=== PATIENT | male | born 1955 | race Caucasian/White ===

== ENCOUNTER 2017-06-27 11:36 | Outpatient (CLI) | payer OTHER | END 2017-06-27 11:37 | disposition home or self-care (01) | LOC: BICRAD 11:36 | PROVIDERS: ATTEND Family Medicine | DX: R07.89 Other chest pain (principal) | CPT/HCPCS: 71046 ==

== ENCOUNTER 2022-05-12 06:15 | Inpatient (IN) | payer OTHER, SELFPAY ==
[2022-05-12] MEDS ORDERED: methylPREDNISolone Sod Succ/PF 125 MG/2 ML VIAL ONE (06:21)
[2022-05-12] MEDS ORDERED: Furosemide 40 MG/4 ML VIAL ONE (06:33)
[2022-05-12] MEDS ORDERED: Ipratropium/Albuterol 3 ML NEB ONE (06:42)
[2022-05-12] MEDS ORDERED: Magnesium 2 GM/50 ML BAG (IN WATER) ONE (06:45)
[2022-05-12 06:52] LABS: Actual Bicarbonate (HCO3v) 24 mEq/L (22-28); Analyzer IN Cardio ER; Base Excess -0.6 mEq/L (-2.0 to +3.0); Chloride (VBG) 101 mmol/L (98-106); Hemoglobin (Hb) 8.8 g/dL (12.6-17.4); Potassium (VBG) 4.68 mmol/L (3.70-5.30); Sodium 134.8 mmol/L (133-146); pH (venous) 7.41 (7.32-7.43)
[2022-05-12 07:02] LABS: #Eosinphils 0.1 thou/uL (0.0-0.7); #Lymphocytes 0.5 thou/uL (1.20-3.40); #Monocytes 0.5 thou/uL (0.11-0.59); #Neutrophils 10.3 thou/uL (1.40-6.50); %Basophils 0.3 % (0.0-1.0); %Eosinophils 0.5 % (0.0-10.0); %Lymphocytes 4.6 % (21.0-51.0); %Monocytes 4.7 % (0.0-10.0); %Neutrophils 89.9 % (42.0-75.0); Hemoglobin 8.5 g/dL (14.0-18.0); Mean Corpuscular HGB CONC 33.9 g/dL (32.0-36.0); Mean Corpuscular Hemoglobin 30.1 pg (27.0-31.0); Mean Corpuscular Volume 88.6 fl (78.0-98.0); Mean Platelet Volume 7.3 fL (7.4-10.4); Platelet Count 260 10x3/uL (130-400); RBC Distribution Width 12.6 % (11.5-14.5); Red Blood Cell (RBC) Count 2.83 mill/uL (4.70-6.10); White Blood Cell (WBC) Count 11.4 10x3/uL (4.8-10.8)
[2022-05-12 07:24] LABS: INR-International Normal Ratio 1.4; Prothrombin Time 17.4 sec (12.0-14.7)
[2022-05-12 07:25] LABS: ALT (SGPT) 41 U/L (8-55); AST (SGOT) 72 U/L (5-34); Albumin 3.2 g/dL (3.4-4.8); Alkaline Phosphatase 122 U/L (40-110); Anion Gap 16 mmol/L (10-20); BUN (Urea Nitrogen) 51 mg/dL (8.4-25.7); Bilirubin, Total 0.5 mg/dL (0.2-1.2); Calc. Creatinine Clearance 0 mL/min (70-130); Calcium 8.6 mg/dL (7.8-10.44); Carbon Dioxide 23 mmol/L (23-31); Chloride 100 mmol/L (98-107); Estimated GFR 19; Globulin 3.4 g/dL (2.4-3.5); Glucose 166 mg/dL (80-115); Potassium 4.6 mmol/L (3.5-5.1); Protein, Total 6.6 g/dL (5.8-8.1); Sodium 134 mmol/L (136-145)
[2022-05-12 07:25] LABS: PTT 39.5 sec (22.9-36.1)
[2022-05-12 07:41] LABS: SARS-CoV-2 NAA Rapid Test Not Detected (NotDetected)
[2022-05-12 08:06] LABS: Bilirubin Negative (Negative); Blood, Urine 2+ (Negative); Clarity Clear (Clear); Glucose, Urine (Dipstick) Normal (Negative); Ketone, Urine Negative (Negative); Leukocyte Negative Leu/uL (Negative); Nitrite Negative (Negative); Protein, Urine (Dipstick) 30 mg/dL (Neg-Trace); Specific Gravity, Urine 1.016 (1.002-1.036); Squamous Epithelial 0-3 HPF (0-3); Urobilinogen Normal mg/dL (Less than 2)
[2022-05-12 08:08] LABS: Bacteria/HPF 1+ HPF (None Seen)
[2022-05-12] MEDS ORDERED: Ondansetron PF 4 MG/2 ML Vial IVP PRN (17:15)
[2022-05-12] MEDS ORDERED: Ondansetron ODT 4 MG TAB SL PRN (17:15)
[2022-05-12] MEDS ORDERED: Acetaminophen 325 MG TAB PO PRN (17:15)
[2022-05-12] MEDS ORDERED: Sodium Chloride 0.9% 1,000 ML IV SCH (17:15)
[2022-05-12] MEDS: Atorvastatin Calcium 40 MG TAB PO SCH (21:17)
[2022-05-12] MEDS: Cyclobenzaprine 10 MG TAB PO SCH (21:17)
[2022-05-12] MEDS: Apixaban 5 MG TAB PO SCH (21:17)
[2022-05-13] MEDS ORDERED: Furosemide 20 MG/2 ML VIAL SLOW IVP SCH (06:00)
[2022-05-13] MEDS ORDERED: Dextrose 50% Abboject 50 ML SYRINGE SLOW IVP PRN (06:33)
[2022-05-13] MEDS ORDERED: Ondansetron PF 4 MG/2 ML Vial IVP PRN (06:33)
[2022-05-13] MEDS ORDERED: Acetaminophen 325 MG TAB PO PRN (06:33)
[2022-05-13] MEDS ORDERED: HYDROcodone/Acetaminophen 5/325 mg Tablet PO PRN ×2 (06:33)
[2022-05-13] MEDS ORDERED: HumaLOG 300 UNITS/3 ML VIAL SC PRN (06:33)
[2022-05-13] MEDS ORDERED: Dextrose 5% in Water 1,000 ML IV PRN (06:33)
[2022-05-13] MEDS ORDERED: Amlodipine 10 MG TAB PO SCH (09:00)
[2022-05-13] MEDS: Furosemide 40 MG/4 ML VIAL SLOW IVP SCH ×2 (09:45→17:35)
[2022-05-13] MEDS: Aspirin 81 mg Enteric Coated Tablet PO SCH (09:46)
[2022-05-13] MEDS: Carvedilol 6.25 MG TAB PO SCH ×2 (09:46→17:32)
[2022-05-13] MEDS: Tamsulosin HCl 0.4 MG CAP PO SCH (09:47)
[2022-05-13] MEDS: Amiodarone 200 MG TAB PO SCH (09:47)
[2022-05-13] MEDS: Cyclobenzaprine 10 MG TAB PO SCH (09:47)
[2022-05-13] MEDS: Apixaban 5 MG TAB PO SCH ×2 (09:47→20:26)
[2022-05-13] MEDS: Pregabalin 75 MG CAP PO SCH (09:48)
[2022-05-13 11:36] LABS: #Lymphocytes 0.4 thou/uL (1.20-3.40); #Monocytes 0.6 thou/uL (0.11-0.59); #Neutrophils 5.3 thou/uL (1.40-6.50); %Eosinophils 0.3 % (0.0-10.0); %Lymphocytes 5.8 % (21.0-51.0); %Monocytes 10.1 % (0.0-10.0); %Neutrophils 83.8 % (42.0-75.0); Hemoglobin 8.3 g/dL (14.0-18.0); Mean Corpuscular HGB CONC 32.4 g/dL (32.0-36.0); Mean Corpuscular Hemoglobin 28.9 pg (27.0-31.0); Mean Corpuscular Volume 89.4 fl (78.0-98.0); Mean Platelet Volume 7.2 fL (7.4-10.4); Platelet Count 267 10x3/uL (130-400); RBC Distribution Width 12.7 % (11.5-14.5); Red Blood Cell (RBC) Count 2.86 mill/uL (4.70-6.10); White Blood Cell (WBC) Count 6.3 10x3/uL (4.8-10.8)
[2022-05-13 11:46] LABS: Anion Gap 21 mmol/L (10-20); BUN (Urea Nitrogen) 86 mg/dL (8.4-25.7); Calc. Creatinine Clearance 25 mL/min (70-130); Calcium 8.5 mg/dL (7.8-10.44); Carbon Dioxide 19 mmol/L (23-31); Chloride 96 mmol/L (98-107); Estimated GFR 17; Potassium 5.2 mmol/L (3.5-5.1); Sodium 131 mmol/L (136-145)
[2022-05-13 11:55] LABS: Glucose 543 mg/dL (80-115)
[2022-05-13] MEDS: HumaLOG 300 UNITS/3 ML VIAL SC PRN ×3 (12:21→20:58)
[2022-05-13 15:57] LABS: Actual Bicarbonate (HCO3a) 24.4 mEq/L (22-28); CO2 Tension 43.3 mmHg (35.0-45.0); Calcium, Ionized (arterial) 1.07 mmol/L (1.12-1.30); Hemoglobin (Hb) 9.1 g/dL (14.0-18.0); Potassium - ABG Lab 5.18 mmol/L (3.70-5.30); pH, Arterial 7.37 (7.35-7.45)
[2022-05-13 15:59] LABS: O2 Tension (PaO2), arterial 53.4 mmHg (> 80.0)
[2022-05-13 16:21] LABS: Lactic Acid 1.9 mmol/L (0.5-2.2)
[2022-05-13 16:25] LABS: Anion Gap 19 mmol/L (10-20); BUN (Urea Nitrogen) 90 mg/dL (8.4-25.7); Calc. Creatinine Clearance 24 mL/min (70-130); Calcium 8.5 mg/dL (7.8-10.44); Carbon Dioxide 21 mmol/L (23-31); Chloride 97 mmol/L (98-107); Estimated GFR 17; Potassium 5.2 mmol/L (3.5-5.1); Sodium 132 mmol/L (136-145)
[2022-05-13 16:34] LABS: Glucose 489 mg/dL (80-115)
[2022-05-13] MEDS ORDERED: Insulin Glargine 30 UNITS/0.3 ML VIAL SC SCH ×3 (16:45→21:00)
[2022-05-13] MEDS: Albumin 25% 25 GM/100 ML BOT IVPB SCH ×2 (17:33→23:40)
[2022-05-13] MEDS: Atorvastatin Calcium 40 MG TAB PO SCH (20:26)
[2022-05-14 04:15] LABS: #Eosinphils 0.2 thou/uL (0.0-0.7); #Lymphocytes 0.7 thou/uL (1.20-3.40); #Monocytes 0.5 thou/uL (0.11-0.59); #Neutrophils 4.3 thou/uL (1.40-6.50); %Basophils 0.3 % (0.0-1.0); %Eosinophils 2.8 % (0.0-10.0); %Lymphocytes 12.3 % (21.0-51.0); %Monocytes 9.5 % (0.0-10.0); %Neutrophils 75.1 % (42.0-75.0); Hemoglobin 8.2 g/dL (14.0-18.0); Mean Corpuscular HGB CONC 32.2 g/dL (32.0-36.0); Mean Corpuscular Hemoglobin 28.9 pg (27.0-31.0); Mean Corpuscular Volume 89.8 fl (78.0-98.0); Mean Platelet Volume 7.5 fL (7.4-10.4); Platelet Count 277 10x3/uL (130-400); RBC Distribution Width 12.9 % (11.5-14.5); Red Blood Cell (RBC) Count 2.83 mill/uL (4.70-6.10); White Blood Cell (WBC) Count 5.7 10x3/uL (4.8-10.8)
[2022-05-14 04:34] LABS: Anion Gap 17 mmol/L (10-20); BUN (Urea Nitrogen) 90 mg/dL (8.4-25.7); Calc. Creatinine Clearance 26 mL/min (70-130); Calcium 8.6 mg/dL (7.8-10.44); Carbon Dioxide 22 mmol/L (23-31); Chloride 100 mmol/L (98-107); Estimated GFR 18; Glucose 195 mg/dL (80-115); Magnesium 2.4 mg/dL (1.6-2.6); Potassium 4.4 mmol/L (3.5-5.1); Sodium 135 mmol/L (136-145)
[2022-05-14] MEDS: Albumin 25% 25 GM/100 ML BOT IVPB SCH ×3 (06:24→17:29)
[2022-05-14] MEDS ORDERED: Insulin Glargine 30 UNITS/0.3 ML VIAL SC SCH (09:00)
[2022-05-14] MEDS: Furosemide 100 MG in Sodium Chloride 0.9% 100 ML IVPB SCH (09:45)
[2022-05-14] MEDS: Carvedilol 6.25 MG TAB PO SCH ×2 (09:48→17:29)
[2022-05-14] MEDS: Amiodarone 200 MG TAB PO SCH (09:48)
[2022-05-14] MEDS: Tamsulosin HCl 0.4 MG CAP PO SCH (09:48)
[2022-05-14] MEDS: Aspirin 81 mg Enteric Coated Tablet PO SCH (09:48)
[2022-05-14] MEDS: Apixaban 5 MG TAB PO SCH ×2 (09:48→19:53)
[2022-05-14] MEDS ORDERED: Cyclobenzaprine 10 MG TAB PO PRN (14:04)
[2022-05-14] MEDS: HumaLOG 300 UNITS/3 ML VIAL SC PRN ×2 (18:11→19:54)
[2022-05-14] MEDS: Atorvastatin Calcium 40 MG TAB PO SCH (19:53)
[2022-05-14] MEDS: Insulin Glargine 30 UNITS/0.3 ML VIAL SC SCH (19:54)
[2022-05-15 05:02] LABS: #Eosinphils 0.4 thou/uL (0.0-0.7); #Lymphocytes 0.7 thou/uL (1.20-3.40); #Monocytes 0.5 thou/uL (0.11-0.59); #Neutrophils 4.3 thou/uL (1.40-6.50); %Basophils 0.3 % (0.0-1.0); %Eosinophils 6.1 % (0.0-10.0); %Monocytes 8.2 % (0.0-10.0); %Neutrophils 73.4 % (42.0-75.0); Hemoglobin 8.2 g/dL (14.0-18.0); Mean Corpuscular HGB CONC 32.7 g/dL (32.0-36.0); Mean Corpuscular Hemoglobin 29.2 pg (27.0-31.0); Mean Corpuscular Volume 89.2 fl (78.0-98.0); Mean Platelet Volume 7.1 fL (7.4-10.4); Platelet Count 265 10x3/uL (130-400); RBC Distribution Width 12.9 % (11.5-14.5); Red Blood Cell (RBC) Count 2.81 mill/uL (4.70-6.10); White Blood Cell (WBC) Count 5.9 10x3/uL (4.8-10.8)
[2022-05-15 05:28] LABS: ALT (SGPT) 20 U/L (8-55); AST (SGOT) 14 U/L (5-34); Albumin 3.9 g/dL (3.4-4.8); Alkaline Phosphatase 100 U/L (40-110); Anion Gap 13 mmol/L (10-20); BUN (Urea Nitrogen) 87 mg/dL (8.4-25.7); Bilirubin, Total 0.7 mg/dL (0.2-1.2); Calc. Creatinine Clearance 28 mL/min (70-130); Calcium 8.9 mg/dL (7.8-10.44); Carbon Dioxide 27 mmol/L (23-31); Chloride 103 mmol/L (98-107); Estimated GFR 20; Globulin 2.7 g/dL (2.4-3.5); Glucose 150 mg/dL (80-115); Potassium 4.1 mmol/L (3.5-5.1); Protein, Total 6.6 g/dL (5.8-8.1); Sodium 139 mmol/L (136-145)
[2022-05-15] MEDS: Carvedilol 6.25 MG TAB PO SCH ×2 (10:33→17:37)
[2022-05-15] MEDS: Tamsulosin HCl 0.4 MG CAP PO SCH (10:33)
[2022-05-15] MEDS: Pregabalin 75 MG CAP PO SCH (10:34)
[2022-05-15] MEDS: Apixaban 5 MG TAB PO SCH ×2 (10:34→21:27)
[2022-05-15] MEDS: Aspirin 81 mg Enteric Coated Tablet PO SCH (10:35)
[2022-05-15] MEDS: Amiodarone 200 MG TAB PO SCH (10:35)
[2022-05-15] MEDS: Albumin 25% 25 GM/100 ML BOT IVPB SCH ×2 (11:31→17:38)
[2022-05-15] MEDS: HumaLOG 300 UNITS/3 ML VIAL SC PRN ×3 (12:09→21:27)
[2022-05-15] MEDS ORDERED: Polyethylene Glycol 3350 17 GM Packet PO PRN (15:32)
[2022-05-15] MEDS: Senokot S 8.6-50 MG TAB PO SCH (21:27)
[2022-05-15] MEDS: Insulin Glargine 30 UNITS/0.3 ML VIAL SC SCH (21:27)
[2022-05-15] MEDS: Atorvastatin Calcium 40 MG TAB PO SCH (21:27)
[2022-05-16] MEDS: Albumin 25% 25 GM/100 ML BOT IVPB SCH ×2 (01:07→05:41)
[2022-05-16 05:09] LABS: Anion Gap 16 mmol/L (10-20); BUN (Urea Nitrogen) 84 mg/dL (8.4-25.7); Calc. Creatinine Clearance 33 mL/min (70-130); Calcium 9.2 mg/dL (7.8-10.44); Carbon Dioxide 26 mmol/L (23-31); Chloride 103 mmol/L (98-107); Estimated GFR 24; Glucose 128 mg/dL (80-115); Potassium 4.1 mmol/L (3.5-5.1); Sodium 141 mmol/L (136-145)
[2022-05-16] MEDS: Furosemide 100 MG in Sodium Chloride 0.9% 100 ML IVPB SCH (05:41)
[2022-05-16] MEDS: Amiodarone 200 MG TAB PO SCH (09:12)
[2022-05-16] MEDS: Senokot S 8.6-50 MG TAB PO SCH ×2 (09:12→22:44)
[2022-05-16] MEDS: Pregabalin 75 MG CAP PO SCH (09:12)
[2022-05-16] MEDS: Apixaban 5 MG TAB PO SCH ×2 (09:13→22:44)
[2022-05-16] MEDS: Tamsulosin HCl 0.4 MG CAP PO SCH (09:13)
[2022-05-16] MEDS: Carvedilol 6.25 MG TAB PO SCH ×2 (09:13→17:34)
[2022-05-16] MEDS: Aspirin 81 mg Enteric Coated Tablet PO SCH (09:13)
[2022-05-16 13:24] LABS: #Eosinphils 0.2 thou/uL (0.0-0.7); #Lymphocytes 0.6 thou/uL (1.20-3.40); #Monocytes 0.5 thou/uL (0.11-0.59); #Neutrophils 4.4 thou/uL (1.40-6.50); %Eosinophils 3.7 % (0.0-10.0); %Lymphocytes 9.9 % (21.0-51.0); %Monocytes 8.2 % (0.0-10.0); %Neutrophils 78.2 % (42.0-75.0); Hemoglobin 8.2 g/dL (14.0-18.0); Mean Corpuscular HGB CONC 33.7 g/dL (32.0-36.0); Mean Corpuscular Hemoglobin 30.2 pg (27.0-31.0); Mean Corpuscular Volume 89.6 fl (78.0-98.0); Mean Platelet Volume 7.7 fL (7.4-10.4); Platelet Count 213 10x3/uL (130-400); RBC Distribution Width 13.1 % (11.5-14.5); White Blood Cell (WBC) Count 5.7 10x3/uL (4.8-10.8)
[2022-05-16 13:44] LABS: Anion Gap 15 mmol/L (10-20); BUN (Urea Nitrogen) 80 mg/dL (8.4-25.7); Calc. Creatinine Clearance 33 mL/min (70-130); Carbon Dioxide 26 mmol/L (23-31); Chloride 104 mmol/L (98-107); Estimated GFR 24; Glucose 145 mg/dL (80-115); Potassium 3.9 mmol/L (3.5-5.1); Sodium 141 mmol/L (136-145)
[2022-05-16] MEDS: Insulin Glargine 30 UNITS/0.3 ML VIAL SC SCH (22:44)
[2022-05-16] MEDS: Atorvastatin Calcium 40 MG TAB PO SCH (22:44)
[2022-05-17] MEDS: HumaLOG 300 UNITS/3 ML VIAL SC PRN ×3 (01:11→20:46)
[2022-05-17 04:26] LABS: #Eosinphils 0.2 thou/uL (0.0-0.7); #Lymphocytes 0.6 thou/uL (1.20-3.40); #Monocytes 0.4 thou/uL (0.11-0.59); %Basophils 0.3 % (0.0-1.0); %Eosinophils 4.4 % (0.0-10.0); %Lymphocytes 11.2 % (21.0-51.0); %Monocytes 7.7 % (0.0-10.0); %Neutrophils 76.4 % (42.0-75.0); Hemoglobin 8.4 g/dL (14.0-18.0); Mean Corpuscular HGB CONC 33.3 g/dL (32.0-36.0); Mean Corpuscular Hemoglobin 30.2 pg (27.0-31.0); Mean Corpuscular Volume 90.7 fl (78.0-98.0); Mean Platelet Volume 7.3 fL (7.4-10.4); Platelet Count 224 10x3/uL (130-400); RBC Distribution Width 13.3 % (11.5-14.5); Red Blood Cell (RBC) Count 2.78 mill/uL (4.70-6.10); White Blood Cell (WBC) Count 5.3 10x3/uL (4.8-10.8)
[2022-05-17 04:41] LABS: Anion Gap 15 mmol/L (10-20); BUN (Urea Nitrogen) 77 mg/dL (8.4-25.7); Calc. Creatinine Clearance 34 mL/min (70-130); Calcium 9.4 mg/dL (7.8-10.44); Carbon Dioxide 29 mmol/L (23-31); Chloride 102 mmol/L (98-107); Estimated GFR 25; Glucose 201 mg/dL (80-115); Potassium 3.8 mmol/L (3.5-5.1); Sodium 142 mmol/L (136-145)
[2022-05-17] MEDS: Furosemide 100 MG in Sodium Chloride 0.9% 100 ML IVPB SCH (05:05)
[2022-05-17] MEDS: Amiodarone 200 MG TAB PO SCH (09:57)
[2022-05-17] MEDS: Carvedilol 6.25 MG TAB PO SCH ×2 (09:57→18:21)
[2022-05-17] MEDS: Apixaban 5 MG TAB PO SCH ×2 (09:57→20:46)
[2022-05-17] MEDS: Aspirin 81 mg Enteric Coated Tablet PO SCH (09:58)
[2022-05-17] MEDS: Pregabalin 75 MG CAP PO SCH (09:58)
[2022-05-17] MEDS: Tamsulosin HCl 0.4 MG CAP PO SCH (09:58)
[2022-05-17] MEDS: Senokot S 8.6-50 MG TAB PO SCH (09:59)
[2022-05-17 17:22] VITALS: BMI 33.0
[2022-05-17] MEDS: Insulin Glargine 30 UNITS/0.3 ML VIAL SC SCH (20:46)
[2022-05-17] MEDS: Atorvastatin Calcium 40 MG TAB PO SCH (20:46)
[2022-05-18 04:44] LABS: Anion Gap 14 mmol/L (10-20); BUN (Urea Nitrogen) 65 mg/dL (8.4-25.7); Calc. Creatinine Clearance 34 mL/min (70-130); Calcium 9.4 mg/dL (7.8-10.44); Carbon Dioxide 29 mmol/L (23-31); Chloride 100 mmol/L (98-107); Estimated GFR 28; Glucose 296 mg/dL (80-115); Potassium 3.7 mmol/L (3.5-5.1); Sodium 139 mmol/L (136-145)
[2022-05-18] MEDS: Furosemide 100 MG in Sodium Chloride 0.9% 100 ML IVPB SCH (05:01)
[2022-05-18] MEDS: HumaLOG 300 UNITS/3 ML VIAL SC PRN ×3 (05:59→21:15)
[2022-05-18] MEDS: Tamsulosin HCl 0.4 MG CAP PO SCH (09:02)
[2022-05-18] MEDS: Aspirin 81 mg Enteric Coated Tablet PO SCH (09:02)
[2022-05-18] MEDS: Amiodarone 200 MG TAB PO SCH (09:02)
[2022-05-18] MEDS: Apixaban 5 MG TAB PO SCH ×2 (09:02→21:15)
[2022-05-18] MEDS: Pregabalin 75 MG CAP PO SCH (09:02)
[2022-05-18] MEDS: Carvedilol 6.25 MG TAB PO SCH ×2 (09:02→17:04)
[2022-05-18] MEDS: Atorvastatin Calcium 40 MG TAB PO SCH (21:15)
[2022-05-18] MEDS: Insulin Glargine 30 UNITS/0.3 ML VIAL SC SCH (21:15)
[2022-05-19 05:09] LABS: #Eosinphils 0.3 thou/uL (0.0-0.7); #Lymphocytes 0.8 thou/uL (1.20-3.40); #Monocytes 0.6 thou/uL (0.11-0.59); #Neutrophils 3.9 thou/uL (1.40-6.50); %Basophils 0.2 % (0.0-1.0); %Eosinophils 5.3 % (0.0-10.0); %Lymphocytes 14.7 % (21.0-51.0); %Monocytes 9.9 % (0.0-10.0); %Neutrophils 69.9 % (42.0-75.0); Hemoglobin 8.7 g/dL (14.0-18.0); Mean Corpuscular HGB CONC 33.1 g/dL (32.0-36.0); Mean Corpuscular Hemoglobin 29.8 pg (27.0-31.0); Mean Corpuscular Volume 90.1 fl (78.0-98.0); Mean Platelet Volume 7.4 fL (7.4-10.4); Platelet Count 216 10x3/uL (130-400); RBC Distribution Width 13.8 % (11.5-14.5); Red Blood Cell (RBC) Count 2.93 mill/uL (4.70-6.10); White Blood Cell (WBC) Count 5.5 10x3/uL (4.8-10.8)
[2022-05-19 05:18] LABS: Anion Gap 15 mmol/L (10-20); BUN (Urea Nitrogen) 49 mg/dL (8.4-25.7); Calc. Creatinine Clearance 39 mL/min (70-130); Calcium 9.3 mg/dL (7.8-10.44); Carbon Dioxide 33 mmol/L (23-31); Chloride 99 mmol/L (98-107); Estimated GFR 32; Glucose 225 mg/dL (80-115); Potassium 3.4 mmol/L (3.5-5.1); Sodium 144 mmol/L (136-145)
[2022-05-19] MEDS: HumaLOG 300 UNITS/3 ML VIAL SC PRN ×2 (06:28→20:58)
[2022-05-19] MEDS: Furosemide 100 MG in Sodium Chloride 0.9% 100 ML IVPB SCH (06:52)
[2022-05-19] MEDS: Carvedilol 6.25 MG TAB PO SCH ×2 (09:22→17:52)
[2022-05-19] MEDS: Apixaban 5 MG TAB PO SCH ×2 (09:23→20:59)
[2022-05-19] MEDS: Amiodarone 200 MG TAB PO SCH (09:23)
[2022-05-19] MEDS: Aspirin 81 mg Enteric Coated Tablet PO SCH (09:23)
[2022-05-19] MEDS: Pregabalin 75 MG CAP PO SCH (09:23)
[2022-05-19] MEDS: Tamsulosin HCl 0.4 MG CAP PO SCH (09:26)
[2022-05-19] MEDS: Potassium Chloride 20 MEQ TAB PO SCH ×2 (12:34→15:06)
[2022-05-19] MEDS: Insulin Glargine 30 UNITS/0.3 ML VIAL SC SCH (20:57)
[2022-05-19] MEDS: Atorvastatin Calcium 40 MG TAB PO SCH (20:59)
[2022-05-20 04:35] LABS: #Eosinphils 0.3 thou/uL (0.0-0.7); #Lymphocytes 0.9 thou/uL (1.20-3.40); #Monocytes 0.5 thou/uL (0.11-0.59); #Neutrophils 3.4 thou/uL (1.40-6.50); %Basophils 0.2 % (0.0-1.0); %Eosinophils 5.3 % (0.0-10.0); %Lymphocytes 16.8 % (21.0-51.0); %Monocytes 9.8 % (0.0-10.0); %Neutrophils 67.9 % (42.0-75.0); Mean Corpuscular HGB CONC 32.6 g/dL (32.0-36.0); Mean Corpuscular Hemoglobin 29.4 pg (27.0-31.0); Mean Corpuscular Volume 90.3 fl (78.0-98.0); Mean Platelet Volume 7.5 fL (7.4-10.4); Platelet Count 184 10x3/uL (130-400); RBC Distribution Width 14.1 % (11.5-14.5); Red Blood Cell (RBC) Count 3.07 mill/uL (4.70-6.10); White Blood Cell (WBC) Count 5.1 10x3/uL (4.8-10.8)
[2022-05-20 04:59] LABS: Anion Gap 15 mmol/L (10-20); BUN (Urea Nitrogen) 46 mg/dL (8.4-25.7); Calc. Creatinine Clearance 37 mL/min (70-130); Calcium 9.2 mg/dL (7.8-10.44); Carbon Dioxide 32 mmol/L (23-31); Chloride 100 mmol/L (98-107); Estimated GFR 31; Glucose 222 mg/dL (80-115); Potassium 4.1 mmol/L (3.5-5.1); Sodium 143 mmol/L (136-145)
[2022-05-20] MEDS: HumaLOG 300 UNITS/3 ML VIAL SC PRN ×2 (05:46→11:28)
[2022-05-20] MEDS: Furosemide 100 MG in Sodium Chloride 0.9% 100 ML IVPB SCH (07:19)
[2022-05-20] MEDS: Carvedilol 6.25 MG TAB PO SCH ×2 (08:47→16:32)
[2022-05-20] MEDS: Tamsulosin HCl 0.4 MG CAP PO SCH (08:48)
[2022-05-20] MEDS: Amiodarone 200 MG TAB PO SCH (08:48)
[2022-05-20] MEDS: Aspirin 81 mg Enteric Coated Tablet PO SCH (08:48)
[2022-05-20] MEDS: Apixaban 5 MG TAB PO SCH ×2 (08:48→21:06)
[2022-05-20] MEDS: Pregabalin 75 MG CAP PO SCH (08:48)
[2022-05-20] MEDS: Atorvastatin Calcium 40 MG TAB PO SCH (21:06)
[2022-05-20] MEDS: Insulin Glargine 30 UNITS/0.3 ML VIAL SC SCH (21:06)
[2022-05-21 05:00] LABS: #Eosinphils 0.2 thou/uL (0.0-0.7); #Lymphocytes 0.9 thou/uL (1.20-3.40); #Monocytes 0.7 thou/uL (0.11-0.59); #Neutrophils 5.1 thou/uL (1.40-6.50); %Basophils 0.1 % (0.0-1.0); %Eosinophils 3.5 % (0.0-10.0); %Lymphocytes 12.8 % (21.0-51.0); %Monocytes 9.5 % (0.0-10.0); %Neutrophils 74.2 % (42.0-75.0); Hemoglobin 9.3 g/dL (14.0-18.0); Mean Corpuscular HGB CONC 33.1 g/dL (32.0-36.0); Mean Corpuscular Hemoglobin 29.5 pg (27.0-31.0); Mean Corpuscular Volume 89.3 fl (78.0-98.0); Mean Platelet Volume 7.6 fL (7.4-10.4); Platelet Count 188 10x3/uL (130-400); RBC Distribution Width 14.1 % (11.5-14.5); Red Blood Cell (RBC) Count 3.14 mill/uL (4.70-6.10); White Blood Cell (WBC) Count 6.8 10x3/uL (4.8-10.8)
[2022-05-21 05:23] LABS: Anion Gap 15 mmol/L (10-20); BUN (Urea Nitrogen) 43 mg/dL (8.4-25.7); Calc. Creatinine Clearance 36 mL/min (70-130); Calcium 9.3 mg/dL (7.8-10.44); Carbon Dioxide 31 mmol/L (23-31); Chloride 99 mmol/L (98-107); Estimated GFR 30; Glucose 189 mg/dL (80-115); Potassium 3.9 mmol/L (3.5-5.1); Sodium 141 mmol/L (136-145)
[2022-05-21] MEDS: HumaLOG 300 UNITS/3 ML VIAL SC PRN (06:07)
[2022-05-21] MEDS ORDERED: Bumetanide 1 MG TAB PO SCH (07:30)
[2022-05-21 08:29] VITALS: BP 125/60; TEMP 97.3
[2022-05-21] MEDS: Carvedilol 6.25 MG TAB PO SCH (09:30)
[2022-05-21] MEDS: Apixaban 5 MG TAB PO SCH (09:31)
[2022-05-21] MEDS: Amiodarone 200 MG TAB PO SCH (09:31)
[2022-05-21] MEDS: Aspirin 81 mg Enteric Coated Tablet PO SCH (09:31)
[2022-05-21] MEDS: Tamsulosin HCl 0.4 MG CAP PO SCH (09:32)
[2022-05-21] MEDS: Pregabalin 75 MG CAP PO SCH (09:32)
[2022-05-21] MEDS ORDERED: Furosemide 20 MG TAB PO SCH (12:00)
[2022-05-21] MEDS ORDERED: Furosemide 40 MG TAB PO SCH (12:15)
[2022-05-22] MEDS ORDERED: Furosemide 40 MG TAB PO SCH (07:30)
== END 2022-05-21 15:00 | DRG 291 ==
LOC: ERS 06:15 → ERHOLD 08:19 → 2NO 16:29
PROVIDERS: ADMIT Hospitalist; ATTEND Hospitalist
PROC: 5A09357 Assistance with Respiratory Ventilation, Less than 24 Consecutive Hours, Continuous Positive Airway Pressure (ICD-10-PCS; principal; 2022-05-13)
DX: I13.0 Hypertensive heart and chronic kidney disease with heart failure and stage 1 through stage 4 chronic kidney disease, or unspecified chronic kidney disease (principal); I50.33 Acute on chronic diastolic (congestive) heart failure; J96.21 Acute and chronic respiratory failure with hypoxia; E66.2 Morbid (severe) obesity with alveolar hypoventilation; N17.9 Acute kidney failure, unspecified; E87.1 Hypo-osmolality and hyponatremia; N18.4 Chronic kidney disease, stage 4 (severe); Z20.822 Contact with and (suspected) exposure to COVID-19; I25.10 Atherosclerotic heart disease of native coronary artery without angina pectoris; J44.9 Chronic obstructive pulmonary disease, unspecified; I48.0 Paroxysmal atrial fibrillation; E11.22 Type 2 diabetes mellitus with diabetic chronic kidney disease; I08.1 Rheumatic disorders of both mitral and tricuspid valves; E78.5 Hyperlipidemia, unspecified; R94.5 Abnormal results of liver function studies; E88.09 Other disorders of plasma-protein metabolism, not elsewhere classified; E11.65 Type 2 diabetes mellitus with hyperglycemia; D63.1 Anemia in chronic kidney disease; E87.6 Hypokalemia; Z79.01 Long term (current) use of anticoagulants; Z86.73 Personal history of transient ischemic attack (TIA), and cerebral infarction without residual deficits; Z68.31 Body mass index [BMI] 31.0-31.9, adult; Z99.89 Dependence on other enabling machines and devices; Z89.421 Acquired absence of other right toe(s); Z90.89 Acquired absence of other organs; Z82.49 Family history of ischemic heart disease and other diseases of the circulatory system; Z95.810 Presence of automatic (implantable) cardiac defibrillator
CPT/HCPCS: 36415; 36416; 51702; 71045; 80048; 80053; 81003; 81015; 82805; 83605; 83735; 83880; 84484; 85025; 85610; 85730; 87040; 87811; 93005; 93306; 93798; 94640; 94660; 96365; 96366; 96375; J1815; J1940; J1956; J2930; J3475; J3490; J7620; P9047

== ENCOUNTER 2022-05-26 18:31 | Inpatient (IN) | payer OTHER ==
[2022-05-26] MEDS ORDERED: Naloxone HCl 0.4 mg/ml Vial ONE ×2 (18:55→18:59)
[2022-05-26 19:20] LABS: #Eosinphils 0.1 thou/uL (0.0-0.7); #Lymphocytes 0.4 thou/uL (1.20-3.40); #Monocytes 0.3 thou/uL (0.11-0.59); #Neutrophils 4.9 thou/uL (1.40-6.50); %Basophils 0.4 % (0.0-1.0); %Eosinophils 1.3 % (0.0-10.0); %Lymphocytes 7.3 % (21.0-51.0); %Monocytes 5.5 % (0.0-10.0); %Neutrophils 85.5 % (42.0-75.0); Hemoglobin 7.9 g/dL (14.0-18.0); Mean Corpuscular Volume 90.7 fl (78.0-98.0); Mean Platelet Volume 8.1 fL (7.4-10.4); Platelet Count 145 10x3/uL (130-400); RBC Distribution Width 14.1 % (11.5-14.5); Red Blood Cell (RBC) Count 2.63 mill/uL (4.70-6.10); White Blood Cell (WBC) Count 5.7 10x3/uL (4.8-10.8)
[2022-05-26] MEDS ORDERED: Furosemide 40 MG/4 ML VIAL ONE (19:21)
[2022-05-26 19:29] LABS: Actual Bicarbonate (HCO3a) 30.8 mEq/L (22-28); Base Excess (BEa) 3.1 mEq/L (-2.0 to +3.0); CO2 Tension 59.6 mmHg (35.0-45.0); Calcium, Ionized (arterial) 1.14 mmol/L (1.12-1.30); Potassium - ABG Lab 3.76 mmol/L (3.70-5.30); pH, Arterial 7.33 (7.35-7.45)
[2022-05-26 19:32] LABS: O2 Tension (PaO2), arterial 53.3 mmHg (> 80.0); Puncture Site LRA
[2022-05-26 19:39] LABS: Magnesium 1.9 mg/dL (1.6-2.6)
[2022-05-26 19:41] LABS: ALT (SGPT) 38 U/L (8-55); AST (SGOT) 53 U/L (5-34); Albumin 3.8 g/dL (3.4-4.8); Alkaline Phosphatase 116 U/L (40-110); Anion Gap 14 mmol/L (10-20); BUN (Urea Nitrogen) 64 mg/dL (8.4-25.7); Bilirubin, Total 0.8 mg/dL (0.2-1.2); Calc. Creatinine Clearance 0 mL/min (70-130); Calcium 8.6 mg/dL (7.8-10.44); Carbon Dioxide 27 mmol/L (23-31); Chloride 103 mmol/L (98-107); Estimated GFR 27; Globulin 2.6 g/dL (2.4-3.5); Glucose 225 mg/dL (80-115); Phosphorus 3.3 mg/dL (2.3-4.7); Potassium 3.6 mmol/L (3.5-5.1); Protein, Total 6.4 g/dL (5.8-8.1); Sodium 140 mmol/L (136-145)
[2022-05-26] MEDS ORDERED: Rocuronium Bromide 10 MG/ML (10ML VIAL) ONE (20:03)
[2022-05-26] MEDS ORDERED: Ketamine 50 MG/ML (10ML VIAL) ONE (20:03)
[2022-05-26] MEDS ORDERED: Propofol 1,000 MG/100 ML VIAL IV ONE (20:19)
[2022-05-26] MEDS ORDERED: Fentanyl CADD 100 ML IV SCH (20:45)
[2022-05-26 20:49] LABS: Actual Bicarbonate (HCO3a) 27.6 mEq/L (22-28); Analyzer IN Cardio ER; Base Excess (BEa) 3.3 mEq/L (-2.0 to +3.0); CO2 Tension 41.1 mmHg (35.0-45.0); Carboxyhemoglobin (COHb) 0.6 gm% (0.0-3.0); Hemoglobin (Hb) 8.1 g/dL (14.0-18.0); O2 Tension (PaO2), arterial 252.9 mmHg (> 80.0); Potassium - ABG Lab 3.88 mmol/L (3.70-5.30); pH, Arterial 7.45 (7.35-7.45)
[2022-05-26 20:51] LABS: Puncture Site LBA
[2022-05-26 20:52] LABS: ALV-art Gradient 52.225 mmHg (0-20)
[2022-05-26] MEDS ORDERED: Ondansetron PF 4 MG/2 ML Vial IVP PRN (21:10)
[2022-05-26] MEDS ORDERED: Dextrose 50% Abboject 50 ML SYRINGE SLOW IVP PRN (21:14)
[2022-05-26] MEDS ORDERED: Dextrose 5% in Water 1,000 ML IV PRN (21:14)
[2022-05-26] MEDS ORDERED: HumaLOG 300 UNITS/3 ML VIAL SC PRN ×2 (21:14)
[2022-05-26] MEDS ORDERED: Ventilator Sedation Protocol 1 EACH FS SCH (21:15)
[2022-05-26] MEDS ORDERED: Ipratropium/Albuterol 3 ML NEB EZPAP PRN (21:16)
[2022-05-26 21:17] LABS: Bacteria/HPF None Seen HPF (None Seen); Bilirubin Negative (Negative); Blood, Urine 1+ (Negative); Clarity Turbid (Clear); Glucose, Urine (Dipstick) Normal (Negative); Ketone, Urine Negative (Negative); Leukocyte 500 Leu/uL (Negative); Nitrite Negative (Negative); Protein, Urine (Dipstick) 30 mg/dL (Neg-Trace); Specific Gravity, Urine 1.012 (1.002-1.036); Squamous Epithelial 0-3 HPF (0-3); Urobilinogen Normal mg/dL (Less than 2); WBC/HPF Greater than 50 HPF (0-3); Yeast-Budding 2+ HPF (None Seen); pH, Urine 5.5 (5.0-9.0)
[2022-05-26] MEDS ORDERED: DISCONTINUE PREVIOUS NARCOTIC PAIN MEDICATIONS AND BENZODIAZEPINES FS SCH (21:30)
[2022-05-26] MEDS ORDERED: Fentanyl BOLUS 250 ML IVPB PRN (21:30)
[2022-05-26] MEDS ORDERED: Lorazepam 2 MG/ML VIAL SLOW IVP PRN (21:30)
[2022-05-26] MEDS ORDERED: Propofol BOLUS 1,000 MG/100 ML VIAL IV PRN (21:30)
[2022-05-26] MEDS ORDERED: Morphine 2 MG/ML VIAL SLOW IVP PRN (21:30)
[2022-05-26] MEDS ORDERED: Aspirin 81 mg Enteric Coated Tablet PER TUBE SCH (22:15)
[2022-05-26 22:19] LABS: SARS-CoV-2 NAA Rapid Test Not Detected (NotDetected)
[2022-05-26] MEDS: Ipratropium/Albuterol 3 ML NEB EZPAP SCH (22:35)
[2022-05-26] MEDS: Ipratropium/Albuterol 3 ML NEB NEB SCH (22:35)
[2022-05-26] MEDS ORDERED: Magnesium 2 GM/50 ML(in water) 2 GM in Premix Bag 1 BAG IVPB SCH (22:45)
[2022-05-26] MEDS ORDERED: Vancomycin 1 GM in Premix Bag 1 BAG IVPB SCH (23:00)
[2022-05-26] MEDS: methylPREDNISolone Sod Succ 40 MG VIAL IVP SCH (23:15)
[2022-05-26] MEDS: Potassium Chloride 20 MEQ in Premix Bag 1 BAG IVPB SCH (23:27)
[2022-05-26] MEDS: Cefepime 1 GM in Sodium Chloride 0.9% 100 ML IVPB SCH (23:34)
[2022-05-26] MEDS ORDERED: Nitroglycerin 2% Ointment 1 INCH/1 GM Packet ONE (23:36)
[2022-05-26 23:50] LABS: Troponin I 0.021 ng/mL (< 0.028)
[2022-05-27] MEDS ORDERED: Vancomycin Dose by Levels Sliding Scale (Wt 71-99) FS SCH ×2 (00:30→04:15)
[2022-05-27] MEDS ORDERED: VANCOMYCIN 1.75 GM/500 ML BAG 1.75 GM in Premix Bag 1 BAG IVPB SCH (01:00)
[2022-05-27] MEDS: Potassium Chloride 20 MEQ in Premix Bag 1 BAG IVPB SCH (01:16)
[2022-05-27] MEDS: Ipratropium/Albuterol 3 ML NEB NEB SCH ×6 (02:52→22:03)
[2022-05-27] MEDS: Ipratropium/Albuterol 3 ML NEB EZPAP SCH ×2 (02:53→03:34)
[2022-05-27] MEDS ORDERED: Ipratropium/Albuterol 3 ML NEB EZPAP PRN (03:00)
[2022-05-27 03:59] LABS: #Lymphocytes 0.3 thou/uL (1.20-3.40); #Monocytes 0.3 thou/uL (0.11-0.59); #Neutrophils 9.6 thou/uL (1.40-6.50); %Eosinophils 0.1 % (0.0-10.0); %Lymphocytes 3.1 % (21.0-51.0); %Monocytes 2.8 % (0.0-10.0); Hemoglobin 8.2 g/dL (14.0-18.0); Mean Corpuscular HGB CONC 33.4 g/dL (32.0-36.0); Mean Corpuscular Hemoglobin 30.1 pg (27.0-31.0); Mean Corpuscular Volume 90.2 fl (78.0-98.0); Mean Platelet Volume 7.8 fL (7.4-10.4); Platelet Count 147 10x3/uL (130-400); RBC Distribution Width 14.2 % (11.5-14.5); Red Blood Cell (RBC) Count 2.73 mill/uL (4.70-6.10); White Blood Cell (WBC) Count 10.2 10x3/uL (4.8-10.8)
[2022-05-27 04:21] LABS: ALT (SGPT) 35 U/L (8-55); AST (SGOT) 39 U/L (5-34); Albumin 3.9 g/dL (3.4-4.8); Alkaline Phosphatase 120 U/L (40-110); Anion Gap 18 mmol/L (10-20); BUN (Urea Nitrogen) 61 mg/dL (8.4-25.7); Bilirubin, Total 1.2 mg/dL (0.2-1.2); Calc. Creatinine Clearance 39 mL/min (70-130); Calcium 9.1 mg/dL (7.8-10.44); Carbon Dioxide 23 mmol/L (23-31); Chloride 103 mmol/L (98-107); Estimated GFR 30; Globulin 2.8 g/dL (2.4-3.5); Glucose 148 mg/dL (80-115); Magnesium 2.2 mg/dL (1.6-2.6); Potassium 4.6 mmol/L (3.5-5.1); Protein, Total 6.7 g/dL (5.8-8.1); Sodium 139 mmol/L (136-145)
[2022-05-27] MEDS: Furosemide 40 MG/4 ML VIAL SLOW IVP SCH ×2 (05:40→14:24)
[2022-05-27] MEDS: methylPREDNISolone Sod Succ 40 MG VIAL IVP SCH ×3 (05:40→21:56)
[2022-05-27] MEDS: Nitroglycerin 2% Ointment 1 INCH/1 GM Packet TOP SCH ×4 (05:40→22:21)
[2022-05-27] MEDS ORDERED: Nitroglycerin 2% Ointment 1 INCH/1 GM Packet TOP SCH (06:00)
[2022-05-27 06:52] LABS: Actual Bicarbonate (HCO3a) 26.7 mEq/L (22-28); Base Excess (BEa) 2.9 mEq/L (-2.0 to +3.0); Calcium, Ionized (arterial) 1.11 mmol/L (1.12-1.30); Potassium - ABG Lab 4.57 mmol/L (3.70-5.30); pH, Arterial 7.46 (7.35-7.45)
[2022-05-27 06:53] LABS: Puncture Site R RAD
[2022-05-27] MEDS ORDERED: Apixaban 2.5 MG TAB PO SCH (09:00)
[2022-05-27] MEDS: Cefepime 1 GM in Sodium Chloride 0.9% 100 ML IVPB SCH ×2 (09:50→21:56)
[2022-05-27] MEDS: Aspirin 81 mg Enteric Coated Tablet PER TUBE SCH (09:51)
[2022-05-27] MEDS: Carvedilol 6.25 MG TAB PO SCH ×2 (09:51→20:20)
[2022-05-27] MEDS: Heparin 5,000 UNITS/ML VIAL SC SCH ×2 (09:51→20:20)
[2022-05-27] MEDS: Pantoprazole 40 MG VIAL IVP SCH (09:52)
[2022-05-27] MEDS: Nystatin Powder 15 GM BOT TOP SCH ×2 (09:52→20:21)
[2022-05-27] MEDS ORDERED: Dextrose 5% in Water 1,000 ML IV PRN (16:21)
[2022-05-27] MEDS ORDERED: HumaLOG 300 UNITS/3 ML VIAL SC PRN (16:21)
[2022-05-27] MEDS ORDERED: Dextrose 50% Abboject 50 ML SYRINGE SLOW IVP PRN (16:21)
[2022-05-27] MEDS: Propofol 1,000 MG/100 ML VIAL IV PRN (18:16)
[2022-05-27] MEDS: Atorvastatin Calcium 40 MG TAB PER TUBE SCH (20:20)
[2022-05-27] MEDS: HumaLOG 300 UNITS/3 ML VIAL SC PRN ×2 (20:27→23:59)
[2022-05-27] MEDS: Fentanyl CADD 100 ML IV SCH (21:57)
[2022-05-28 00:27] LABS: Vancomycin, Random 19.2 ug/mL (See Comment)
[2022-05-28] MEDS ORDERED: Vancomycin HCl 500 MG in Sodium Chloride 0.9% 100 ML IV SCH (02:00)
[2022-05-28] MEDS: Propofol 1,000 MG/100 ML VIAL IV PRN ×2 (02:14→15:58)
[2022-05-28] MEDS: Ipratropium/Albuterol 3 ML NEB NEB SCH ×6 (02:29→22:27)
[2022-05-28 03:41] LABS: #Lymphocytes 0.3 thou/uL (1.20-3.40); #Monocytes 0.2 thou/uL (0.11-0.59); #Neutrophils 5.9 thou/uL (1.40-6.50); %Basophils 0.1 % (0.0-1.0); %Eosinophils 0.3 % (0.0-10.0); %Lymphocytes 4.7 % (21.0-51.0); %Monocytes 3.2 % (0.0-10.0); %Neutrophils 91.7 % (42.0-75.0); Hemoglobin 7.9 g/dL (14.0-18.0); Mean Corpuscular HGB CONC 33.7 g/dL (32.0-36.0); Mean Corpuscular Hemoglobin 30.2 pg (27.0-31.0); Mean Corpuscular Volume 89.8 fl (78.0-98.0); Mean Platelet Volume 8.7 fL (7.4-10.4); Platelet Count 187 10x3/uL (130-400); RBC Distribution Width 14.3 % (11.5-14.5); White Blood Cell (WBC) Count 6.4 10x3/uL (4.8-10.8)
[2022-05-28 03:47] LABS: Hemoglobin A1c 9.7 % (4.0-6.0)
[2022-05-28 04:02] LABS: ALT (SGPT) 24 U/L (8-55); AST (SGOT) 17 U/L (5-34); Albumin 3.6 g/dL (3.4-4.8); Alkaline Phosphatase 102 U/L (40-110); Anion Gap 20 mmol/L (10-20); BUN (Urea Nitrogen) 78 mg/dL (8.4-25.7); Bilirubin, Total 0.7 mg/dL (0.2-1.2); Calc. Creatinine Clearance 32 mL/min (70-130); Carbon Dioxide 24 mmol/L (23-31); Chloride 100 mmol/L (98-107); Estimated GFR 24; Globulin 2.9 g/dL (2.4-3.5); Glucose 385 mg/dL (80-115); Magnesium 2.4 mg/dL (1.6-2.6); Potassium 4.7 mmol/L (3.5-5.1); Protein, Total 6.5 g/dL (5.8-8.1); Sodium 139 mmol/L (136-145)
[2022-05-28 04:05] LABS: Phosphorus 4.9 mg/dL (2.3-4.7); Troponin I 0.014 ng/mL (< 0.028)
[2022-05-28] MEDS: HumaLOG 300 UNITS/3 ML VIAL SC PRN ×5 (04:09→20:27)
[2022-05-28] MEDS ORDERED: Insulin NPH Human Isophane 100 UNIT/ML (10 ML VIAL) SC SCH (04:15)
[2022-05-28 04:20] LABS: Thyroid Stimulating Hormone 0.7017 uIU/mL (0.35-4.94)
[2022-05-28] MEDS: methylPREDNISolone Sod Succ 40 MG VIAL IVP SCH ×3 (04:34→21:32)
[2022-05-28] MEDS: Furosemide 40 MG/4 ML VIAL SLOW IVP SCH (04:34)
[2022-05-28] MEDS: Nitroglycerin 2% Ointment 1 INCH/1 GM Packet TOP SCH ×3 (04:35→21:32)
[2022-05-28 06:26] LABS: Ferritin 2399.27 ng/mL (22-322)
[2022-05-28] MEDS ORDERED: Insulin Glargine 30 UNITS/0.3 ML VIAL SC SCH (06:30)
[2022-05-28 07:20] LABS: Actual Bicarbonate (HCO3a) 27.4 mEq/L (22-28); Base Excess (BEa) 4.3 mEq/L (-2.0 to +3.0); CO2 Tension 34.5 mmHg (35.0-45.0); Calcium, Ionized (arterial) 1.12 mmol/L (1.12-1.30); Carboxyhemoglobin (COHb) 0.4 gm% (0.0-3.0); Hemoglobin (Hb) 8.6 g/dL (14.0-18.0); Potassium - ABG Lab 4.22 mmol/L (3.70-5.30); pH, Arterial 7.52 (7.35-7.45)
[2022-05-28] MEDS: Aspirin 81 mg Enteric Coated Tablet PER TUBE SCH (09:00)
[2022-05-28] MEDS: Heparin 5,000 UNITS/ML VIAL SC SCH ×2 (09:50→20:31)
[2022-05-28] MEDS: Pantoprazole 40 MG VIAL IVP SCH (09:51)
[2022-05-28] MEDS: Carvedilol 6.25 MG TAB PO SCH ×2 (09:51→20:28)
[2022-05-28] MEDS: Nystatin Powder 15 GM BOT TOP SCH ×2 (09:52→20:28)
[2022-05-28] MEDS: Cefepime 1 GM in Sodium Chloride 0.9% 100 ML IVPB SCH ×2 (10:36→21:46)
[2022-05-28] MEDS ORDERED: Aspirin Chewable 81 MG TAB PER TUBE SCH (11:15)
[2022-05-28 16:09] LABS: O2 Tension (PaO2), arterial 59.3 mmHg (> 80.0)
[2022-05-28] MEDS ORDERED: Fentanyl CADD 100 ML ONE (16:16)
[2022-05-28] MEDS: Fentanyl CADD 100 ML IV SCH (17:17)
[2022-05-28] MEDS: Atorvastatin Calcium 40 MG TAB PER TUBE SCH (20:28)
[2022-05-29] MEDS: HumaLOG 300 UNITS/3 ML VIAL SC PRN ×6 (00:10→20:43)
[2022-05-29] MEDS: Ipratropium/Albuterol 3 ML NEB NEB SCH ×6 (02:43→22:27)
[2022-05-29 03:53] LABS: Vancomycin, Random 14.9 ug/mL (See Comment)
[2022-05-29] MEDS: Propofol 1,000 MG/100 ML VIAL IV PRN (04:03)
[2022-05-29 04:21] LABS: #Lymphocytes 0.3 thou/uL (1.20-3.40); #Monocytes 0.7 thou/uL (0.11-0.59); #Neutrophils 11.8 thou/uL (1.40-6.50); %Eosinophils 0.1 % (0.0-10.0); %Lymphocytes 2.4 % (21.0-51.0); %Monocytes 5.8 % (0.0-10.0); %Neutrophils 91.7 % (42.0-75.0); Hemoglobin 8.2 g/dL (14.0-18.0); Mean Corpuscular HGB CONC 32.5 g/dL (32.0-36.0); Mean Corpuscular Hemoglobin 29.6 pg (27.0-31.0); Mean Corpuscular Volume 91.1 fl (78.0-98.0); Mean Platelet Volume 8.3 fL (7.4-10.4); Platelet Count 211 10x3/uL (130-400); RBC Distribution Width 14.7 % (11.5-14.5); Red Blood Cell (RBC) Count 2.78 mill/uL (4.70-6.10); White Blood Cell (WBC) Count 12.9 10x3/uL (4.8-10.8)
[2022-05-29 04:38] LABS: ALT (SGPT) 17 U/L (8-55); AST (SGOT) 9 U/L (5-34); Albumin 3.5 g/dL (3.4-4.8); Alkaline Phosphatase 97 U/L (40-110); Anion Gap 16 mmol/L (10-20); BUN (Urea Nitrogen) 73 mg/dL (8.4-25.7); Bilirubin, Total 0.6 mg/dL (0.2-1.2); Calc. Creatinine Clearance 37 mL/min (70-130); Calcium 9.1 mg/dL (7.8-10.44); Carbon Dioxide 26 mmol/L (23-31); Chloride 105 mmol/L (98-107); Estimated GFR 28; Globulin 2.7 g/dL (2.4-3.5); Glucose 273 mg/dL (80-115); Magnesium 2.4 mg/dL (1.6-2.6); Potassium 4.1 mmol/L (3.5-5.1); Protein, Total 6.2 g/dL (5.8-8.1); Sodium 143 mmol/L (136-145)
[2022-05-29] MEDS ORDERED: Vancomycin HCl 750 MG in Sodium Chloride 0.9% 250 ML 250 ML IVPB SCH (05:00)
[2022-05-29] MEDS: methylPREDNISolone Sod Succ 40 MG VIAL IVP SCH ×3 (05:10→21:01)
[2022-05-29] MEDS: Nitroglycerin 2% Ointment 1 INCH/1 GM Packet TOP SCH ×3 (05:10→21:10)
[2022-05-29 07:59] LABS: Actual Bicarbonate (HCO3a) 28.5 mEq/L (22-28); Base Excess (BEa) 4.7 mEq/L (-2.0 to +3.0); Calcium, Ionized (arterial) 1.15 mmol/L (1.12-1.30); Carboxyhemoglobin (COHb) 0.1 gm% (0.0-3.0); Hemoglobin (Hb) 9.1 g/dL (14.0-18.0); O2 Tension (PaO2), arterial 72.9 mmHg (> 80.0); pH, Arterial 7.48 (7.35-7.45)
[2022-05-29] MEDS ORDERED: Insulin Glargine 30 UNITS/0.3 ML VIAL SC SCH ×3 (09:00→10:30)
[2022-05-29] MEDS: Carvedilol 6.25 MG TAB PO SCH ×2 (09:55→21:00)
[2022-05-29] MEDS: Heparin 5,000 UNITS/ML VIAL SC SCH ×2 (09:56→21:04)
[2022-05-29] MEDS: Aspirin Chewable 81 MG TAB PER TUBE SCH (09:56)
[2022-05-29] MEDS: Pantoprazole 40 MG VIAL IVP SCH (09:57)
[2022-05-29] MEDS: Nystatin Powder 15 GM BOT TOP SCH ×2 (09:57→21:02)
[2022-05-29] MEDS: Cefepime 1 GM in Sodium Chloride 0.9% 100 ML IVPB SCH ×2 (10:04→22:20)
[2022-05-29] MEDS ORDERED: DC Sedation Protocol FS SCH (11:14)
[2022-05-29] MEDS: Atorvastatin Calcium 40 MG TAB PER TUBE SCH (21:00)
[2022-05-30] MEDS: HumaLOG 300 UNITS/3 ML VIAL SC PRN ×4 (00:01→12:12)
[2022-05-30] MEDS: Ipratropium/Albuterol 3 ML NEB NEB SCH ×5 (02:57→23:41)
[2022-05-30 04:51] LABS: #Lymphocytes 0.3 thou/uL (1.20-3.40); #Monocytes 0.4 thou/uL (0.11-0.59); #Neutrophils 7.7 thou/uL (1.40-6.50); %Basophils 0.3 % (0.0-1.0); %Eosinophils 0.1 % (0.0-10.0); %Lymphocytes 3.1 % (21.0-51.0); %Monocytes 4.1 % (0.0-10.0); %Neutrophils 92.4 % (42.0-75.0); Hemoglobin 8.7 g/dL (14.0-18.0); Mean Corpuscular HGB CONC 33.3 g/dL (32.0-36.0); Mean Corpuscular Hemoglobin 30.5 pg (27.0-31.0); Mean Corpuscular Volume 91.7 fl (78.0-98.0); Mean Platelet Volume 8.3 fL (7.4-10.4); Platelet Count 194 10x3/uL (130-400); RBC Distribution Width 14.3 % (11.5-14.5); Red Blood Cell (RBC) Count 2.85 mill/uL (4.70-6.10); White Blood Cell (WBC) Count 8.4 10x3/uL (4.8-10.8)
[2022-05-30 05:11] LABS: Anion Gap 14 mmol/L (10-20); BUN (Urea Nitrogen) 62 mg/dL (8.4-25.7); Calc. Creatinine Clearance 44 mL/min (70-130); Calcium 9.2 mg/dL (7.8-10.44); Carbon Dioxide 29 mmol/L (23-31); Chloride 108 mmol/L (98-107); Estimated GFR 36; Glucose 232 mg/dL (80-115); Magnesium 2.6 mg/dL (1.6-2.6); Potassium 4.3 mmol/L (3.5-5.1); Sodium 147 mmol/L (136-145)
[2022-05-30] MEDS: Nitroglycerin 2% Ointment 1 INCH/1 GM Packet TOP SCH ×3 (06:00→22:37)
[2022-05-30] MEDS: methylPREDNISolone Sod Succ 40 MG VIAL IVP SCH (06:02)
[2022-05-30] MEDS ORDERED: FLU VACC QS2022-23(65YR UP)/PF 240 MCG/0.7 ML SYRINGE IM ONE (09:00)
[2022-05-30] MEDS: Nystatin Powder 15 GM BOT TOP SCH ×2 (09:15→22:37)
[2022-05-30] MEDS: Pantoprazole 40 MG VIAL IVP SCH (09:59)
[2022-05-30] MEDS ORDERED: Cefdinir 300 MG CAP PO SCH (10:30)
[2022-05-30] MEDS: Heparin 5,000 UNITS/ML VIAL SC SCH ×2 (10:36→22:37)
[2022-05-30] MEDS: Carvedilol 6.25 MG TAB PO SCH ×2 (10:36→22:36)
[2022-05-30] MEDS: Aspirin Chewable 81 MG TAB PER TUBE SCH (10:37)
[2022-05-30] MEDS: Insulin Glargine 30 UNITS/0.3 ML VIAL SC SCH (11:18)
[2022-05-30] MEDS: Atorvastatin Calcium 40 MG TAB PER TUBE SCH (22:36)
[2022-05-30] MEDS: Tamsulosin HCl 0.4 MG CAP PO SCH (22:37)
[2022-05-31 06:41] LABS: #Eosinphils 0.1 thou/uL (0.0-0.7); #Lymphocytes 0.6 thou/uL (1.20-3.40); #Monocytes 0.8 thou/uL (0.11-0.59); #Neutrophils 5.8 thou/uL (1.40-6.50); %Eosinophils 0.8 % (0.0-10.0); %Lymphocytes 8.6 % (21.0-51.0); %Monocytes 10.4 % (0.0-10.0); %Neutrophils 80.2 % (42.0-75.0); Hemoglobin 8.8 g/dL (14.0-18.0); Mean Corpuscular HGB CONC 33.3 g/dL (32.0-36.0); Mean Corpuscular Hemoglobin 30.8 pg (27.0-31.0); Mean Corpuscular Volume 92.3 fl (78.0-98.0); Platelet Count 173 10x3/uL (130-400); RBC Distribution Width 14.2 % (11.5-14.5); Red Blood Cell (RBC) Count 2.86 mill/uL (4.70-6.10); White Blood Cell (WBC) Count 7.2 10x3/uL (4.8-10.8)
[2022-05-31] MEDS: Nitroglycerin 2% Ointment 1 INCH/1 GM Packet TOP SCH ×3 (06:43→22:41)
[2022-05-31 06:58] LABS: Anion Gap 12 mmol/L (10-20); BUN (Urea Nitrogen) 46 mg/dL (8.4-25.7); Calc. Creatinine Clearance 56 mL/min (70-130); Calcium 8.5 mg/dL (7.8-10.44); Carbon Dioxide 27 mmol/L (23-31); Chloride 109 mmol/L (98-107); Estimated GFR 48; Glucose 153 mg/dL (80-115); Magnesium 2.4 mg/dL (1.6-2.6); Potassium 3.8 mmol/L (3.5-5.1); Sodium 144 mmol/L (136-145)
[2022-05-31] MEDS: Ipratropium/Albuterol 3 ML NEB NEB SCH ×4 (06:59→23:15)
[2022-05-31] MEDS: Aspirin Chewable 81 MG TAB PER TUBE SCH (09:49)
[2022-05-31] MEDS: Carvedilol 6.25 MG TAB PO SCH ×2 (09:49→20:47)
[2022-05-31] MEDS: Cefdinir 300 MG CAP PO SCH (09:49)
[2022-05-31] MEDS: Amiodarone 200 MG TAB PO SCH (09:49)
[2022-05-31] MEDS: Heparin 5,000 UNITS/ML VIAL SC SCH ×2 (09:50→20:47)
[2022-05-31] MEDS: Insulin Glargine 30 UNITS/0.3 ML VIAL SC SCH (09:50)
[2022-05-31] MEDS: Nystatin Powder 15 GM BOT TOP SCH ×2 (09:51→20:48)
[2022-05-31 14:21] VITALS: BMI 29.5
[2022-05-31 15:11] LABS: O2 Tension (PaO2), arterial 48.1 mmHg (> 80.0)
[2022-05-31] MEDS: HumaLOG 300 UNITS/3 ML VIAL SC PRN (17:27)
[2022-05-31] MEDS: Tamsulosin HCl 0.4 MG CAP PO SCH (20:47)
[2022-05-31] MEDS: Atorvastatin Calcium 40 MG TAB PER TUBE SCH (20:47)
[2022-06-01] MEDS: HumaLOG 300 UNITS/3 ML VIAL SC PRN ×4 (00:55→22:47)
[2022-06-01] MEDS: Nitroglycerin 2% Ointment 1 INCH/1 GM Packet TOP SCH ×3 (06:13→22:48)
[2022-06-01] MEDS: Acetaminophen 325 MG TAB PO PRN (06:17)
[2022-06-01 07:47] LABS: #Basophils 0.1 thou/uL (0.0-0.2); #Eosinphils 0.2 thou/uL (0.0-0.7); #Lymphocytes 0.5 thou/uL (1.20-3.40); #Monocytes 0.5 thou/uL (0.11-0.59); #Neutrophils 4.1 thou/uL (1.40-6.50); %Basophils 1.7 % (0.0-1.0); %Eosinophils 4.4 % (0.0-10.0); %Monocytes 8.7 % (0.0-10.0); %Neutrophils 76.1 % (42.0-75.0); Hemoglobin 8.8 g/dL (14.0-18.0); Mean Corpuscular HGB CONC 32.8 g/dL (32.0-36.0); Mean Corpuscular Hemoglobin 29.9 pg (27.0-31.0); Mean Corpuscular Volume 91.1 fl (78.0-98.0); Mean Platelet Volume 7.4 fL (7.4-10.4); Platelet Count 181 10x3/uL (130-400); RBC Distribution Width 13.9 % (11.5-14.5); Red Blood Cell (RBC) Count 2.95 mill/uL (4.70-6.10); White Blood Cell (WBC) Count 5.4 10x3/uL (4.8-10.8)
[2022-06-01] MEDS: Ipratropium/Albuterol 3 ML NEB NEB SCH ×3 (07:59→18:47)
[2022-06-01] MEDS: Aspirin Chewable 81 MG TAB PER TUBE SCH (08:05)
[2022-06-01] MEDS: Heparin 5,000 UNITS/ML VIAL SC SCH ×2 (08:05→22:47)
[2022-06-01] MEDS: Insulin Glargine 30 UNITS/0.3 ML VIAL SC SCH (08:05)
[2022-06-01] MEDS: Cefdinir 300 MG CAP PO SCH (08:05)
[2022-06-01] MEDS: Amiodarone 200 MG TAB PO SCH (08:06)
[2022-06-01] MEDS: Carvedilol 6.25 MG TAB PO SCH ×2 (08:06→22:47)
[2022-06-01] MEDS: Nystatin Powder 15 GM BOT TOP SCH ×2 (08:06→22:48)
[2022-06-01 08:10] LABS: Anion Gap 10 mmol/L (10-20); BUN (Urea Nitrogen) 34 mg/dL (8.4-25.7); Calc. Creatinine Clearance 63 mL/min (70-130); Calcium 8.6 mg/dL (7.8-10.44); Carbon Dioxide 30 mmol/L (23-31); Chloride 107 mmol/L (98-107); Estimated GFR 55; Glucose 197 mg/dL (80-115); Magnesium 2.1 mg/dL (1.6-2.6); Potassium 3.7 mmol/L (3.5-5.1); Sodium 143 mmol/L (136-145)
[2022-06-01] MEDS: Tamsulosin HCl 0.4 MG CAP PO SCH (22:47)
[2022-06-01] MEDS: Atorvastatin Calcium 40 MG TAB PER TUBE SCH (22:48)
[2022-06-01] MEDS ORDERED: Melatonin 3 MG TAB PO PRN (22:52)
[2022-06-02] MEDS: Ipratropium/Albuterol 3 ML NEB NEB SCH ×4 (00:43→18:54)
[2022-06-02] MEDS: Acetaminophen 325 MG TAB PO PRN (00:55)
[2022-06-02] MEDS: Nitroglycerin 2% Ointment 1 INCH/1 GM Packet TOP SCH ×2 (05:35→14:59)
[2022-06-02 08:23] LABS: #Eosinphils 0.4 thou/uL (0.0-0.7); #Lymphocytes 0.7 thou/uL (1.20-3.40); #Monocytes 0.6 thou/uL (0.11-0.59); #Neutrophils 4.7 thou/uL (1.40-6.50); %Basophils 0.4 % (0.0-1.0); %Eosinophils 6.8 % (0.0-10.0); %Lymphocytes 11.4 % (21.0-51.0); %Monocytes 8.6 % (0.0-10.0); %Neutrophils 72.8 % (42.0-75.0); Hemoglobin 9.2 g/dL (14.0-18.0); Mean Corpuscular HGB CONC 32.8 g/dL (32.0-36.0); Mean Corpuscular Hemoglobin 29.7 pg (27.0-31.0); Mean Corpuscular Volume 90.5 fl (78.0-98.0); Mean Platelet Volume 7.5 fL (7.4-10.4); Platelet Count 187 10x3/uL (130-400); RBC Distribution Width 13.8 % (11.5-14.5); White Blood Cell (WBC) Count 6.5 10x3/uL (4.8-10.8)
[2022-06-02 08:40] LABS: Anion Gap 13 mmol/L (10-20); BUN (Urea Nitrogen) 29 mg/dL (8.4-25.7); Calc. Creatinine Clearance 64 mL/min (70-130); Calcium 8.4 mg/dL (7.8-10.44); Carbon Dioxide 25 mmol/L (23-31); Chloride 105 mmol/L (98-107); Estimated GFR 57; Glucose 133 mg/dL (80-115); Magnesium 1.9 mg/dL (1.6-2.6); Potassium 3.9 mmol/L (3.5-5.1); Sodium 139 mmol/L (136-145)
[2022-06-02] MEDS: Cefdinir 300 MG CAP PO SCH (09:06)
[2022-06-02] MEDS: Aspirin Chewable 81 MG TAB PER TUBE SCH (09:06)
[2022-06-02] MEDS: Amiodarone 200 MG TAB PO SCH (09:07)
[2022-06-02] MEDS: Carvedilol 6.25 MG TAB PO SCH (09:07)
[2022-06-02] MEDS: Insulin Glargine 30 UNITS/0.3 ML VIAL SC SCH (09:11)
[2022-06-02] MEDS: Heparin 5,000 UNITS/ML VIAL SC SCH (09:11)
[2022-06-02] MEDS: Nystatin Powder 15 GM BOT TOP SCH (09:12)
[2022-06-02] MEDS: HumaLOG 300 UNITS/3 ML VIAL SC PRN (12:44)
[2022-06-02 17:25] VITALS: BP 122/79; TEMP 97.8
== END 2022-06-02 21:20 | DRG 64 ==
LOC: ERS 18:31 → CCU 20:32 → T4-A 05-30 12:58
PROVIDERS: ADMIT Internal Medicine; ATTEND Internal Medicine
PROC: 5A1945Z Respiratory Ventilation, 24-96 Consecutive Hours (ICD-10-PCS; principal; 2022-05-26)
PROC: 0BH17EZ Insertion of Endotracheal Airway into Trachea, Via Natural or Artificial Opening (ICD-10-PCS; 2022-05-26)
PROC: 0D9670Z Drainage of Stomach with Drainage Device, Via Natural or Artificial Opening (ICD-10-PCS; 2022-05-26)
DX: I63.9 Cerebral infarction, unspecified (principal); G93.41 Metabolic encephalopathy; I50.33 Acute on chronic diastolic (congestive) heart failure; J18.9 Pneumonia, unspecified organism; J96.21 Acute and chronic respiratory failure with hypoxia; J96.22 Acute and chronic respiratory failure with hypercapnia; J44.1 Chronic obstructive pulmonary disease with (acute) exacerbation; N17.9 Acute kidney failure, unspecified; J44.0 Chronic obstructive pulmonary disease with (acute) lower respiratory infection; E27.40 Unspecified adrenocortical insufficiency; I13.0 Hypertensive heart and chronic kidney disease with heart failure and stage 1 through stage 4 chronic kidney disease, or unspecified chronic kidney disease; Z20.822 Contact with and (suspected) exposure to COVID-19; R29.702 NIHSS score 2; N18.30 Chronic kidney disease, stage 3 unspecified; D63.1 Anemia in chronic kidney disease; E11.649 Type 2 diabetes mellitus with hypoglycemia without coma; E11.22 Type 2 diabetes mellitus with diabetic chronic kidney disease; R79.89 Other specified abnormal findings of blood chemistry; R13.12 Dysphagia, oropharyngeal phase; I48.0 Paroxysmal atrial fibrillation; G47.33 Obstructive sleep apnea (adult) (pediatric); E66.9 Obesity, unspecified; R94.31 Abnormal electrocardiogram [ECG] [EKG]; E78.5 Hyperlipidemia, unspecified; E11.51 Type 2 diabetes mellitus with diabetic peripheral angiopathy without gangrene; E11.65 Type 2 diabetes mellitus with hyperglycemia; Z68.29 Body mass index [BMI] 29.0-29.9, adult; Z78.1 Physical restraint status; Z79.01 Long term (current) use of anticoagulants; Z79.899 Other long term (current) drug therapy; Z79.82 Long term (current) use of aspirin; Z79.4 Long term (current) use of insulin; Z79.51 Long term (current) use of inhaled steroids; Z89.411 Acquired absence of right great toe; Z89.421 Acquired absence of other right toe(s); Z95.810 Presence of automatic (implantable) cardiac defibrillator; Z80.9 Family history of malignant neoplasm, unspecified; Z83.3 Family history of diabetes mellitus; Z82.49 Family history of ischemic heart disease and other diseases of the circulatory system; Z87.891 Personal history of nicotine dependence; Z90.89 Acquired absence of other organs; Z98.890 Other specified postprocedural states
CPT/HCPCS: 31500; 36415; 36416; 36600; 51702; 70450; 71045; 80048; 80053; 80202; 81003; 81015; 82010; 82533; 82550; 82728; 82805; 83036; 83735; 83880; 84100; 84145; 84443; 84484; 85025; 87040; 87086; 93005; 93010; 93880; 94002; 94003; 94640; 95712; 95819; 95957; 96374; 96375; C9113; J0692; J1644; J1815; J1940; J2060; J2310; J2405; J2704; J2920; J3010; J3370; J3475; J3480; J3490; J7050; J7620

== ENCOUNTER 2022-06-11 13:50 | Outpatient (CLI) | payer OTHER | END 2022-06-11 13:51 | disposition home or self-care (01) | LOC: RAD 13:50 | PROVIDERS: ATTEND Physical Medicine & Rehabilitation | DX: I69.891 Dysphagia following other cerebrovascular disease (principal); R13.10 Dysphagia, unspecified; R63.30 Feeding difficulties, unspecified | CPT/HCPCS: 74230 ==

== ENCOUNTER 2022-07-09 06:22 | Day surgery (SDC) | payer OTHER ==
[2022-07-08 10:07] VITALS: BMI 32.9
[2022-07-09 07:32] LABS: #Eosinphils 0.2 thou/uL (0.0-0.7); #Lymphocytes 1.3 thou/uL (1.20-3.40); #Monocytes 0.6 thou/uL (0.11-0.59); #Neutrophils 3.1 thou/uL (1.40-6.50); %Basophils 0.3 % (0.0-1.0); %Eosinophils 3.4 % (0.0-10.0); %Lymphocytes 24.8 % (21.0-51.0); %Monocytes 10.8 % (0.0-10.0); %Neutrophils 60.6 % (42.0-75.0); Hemoglobin 9.2 g/dL (14.0-18.0); Mean Corpuscular HGB CONC 31.5 g/dL (32.0-36.0); Mean Corpuscular Hemoglobin 29.3 pg (27.0-31.0); Mean Corpuscular Volume 92.9 fl (78.0-98.0); Platelet Count 142 10x3/uL (130-400); Red Blood Cell (RBC) Count 3.13 mill/uL (4.70-6.10); White Blood Cell (WBC) Count 5.1 10x3/uL (4.8-10.8)
[2022-07-09 07:47] LABS: INR-International Normal Ratio 1.3; PTT 37.2 sec (22.9-36.1); Prothrombin Time 16.7 sec (12.0-14.7)
[2022-07-09 07:48] LABS: Anion Gap 12 mmol/L (10-20); BUN (Urea Nitrogen) 37 mg/dL (8.4-25.7); Calc. Creatinine Clearance 44 mL/min (70-130); Calcium 8.9 mg/dL (7.8-10.44); Carbon Dioxide 26 mmol/L (23-31); Chloride 108 mmol/L (98-107); Estimated GFR 36; Glucose 87 mg/dL (80-115); Potassium 3.5 mmol/L (3.5-5.1); Sodium 142 mmol/L (136-145)
[2022-07-09] MEDS ORDERED: PROPOFOL 200 MG/20 ML VIAL ONE (07:49)
[2022-07-09] MEDS ORDERED: Lidocaine 1% PF 5 ML VIAL ONE (07:49)
== END 2022-07-09 09:20 | disposition home or self-care (01) ==
LOC: SDC 06:22
PROVIDERS: ATTEND Internal Medicine Cardiovascular Disease
PROC: 5A2204Z Restoration of Cardiac Rhythm, Single (ICD-10-PCS; principal; 2022-07-09)
DX: I48.19 Other persistent atrial fibrillation (principal); I48.4 Atypical atrial flutter; I25.10 Atherosclerotic heart disease of native coronary artery without angina pectoris; I12.9 Hypertensive chronic kidney disease with stage 1 through stage 4 chronic kidney disease, or unspecified chronic kidney disease; E11.22 Type 2 diabetes mellitus with diabetic chronic kidney disease; N18.6 End stage renal disease; R94.31 Abnormal electrocardiogram [ECG] [EKG]; Z95.810 Presence of automatic (implantable) cardiac defibrillator; Z95.1 Presence of aortocoronary bypass graft; Z86.73 Personal history of transient ischemic attack (TIA), and cerebral infarction without residual deficits; Z87.891 Personal history of nicotine dependence; Z79.4 Long term (current) use of insulin; Z79.01 Long term (current) use of anticoagulants; Z79.899 Other long term (current) drug therapy
CPT/HCPCS: 36415; 80048; 85025; 85610; 85730; 92960; 93005; 93010